=== PATIENT | male | born 1995 | race Hispanic/Latino ===

== ENCOUNTER 2017-10-03 17:13 | Emergency (ER) | payer BC | END 2017-10-03 18:15 | disposition home or self-care (01) | LOC: ERS 17:13 | DX: S83.411A Sprain of medial collateral ligament of right knee, initial encounter (principal); J45.909 Unspecified asthma, uncomplicated; X50.1XXA Overexertion from prolonged static or awkward postures, initial encounter; Y93.02 Activity, running | CPT/HCPCS: 99283 ==

== ENCOUNTER 2019-05-02 10:33 | Outpatient (CLI) | payer BC ==
--- NOTE | 2019-05-02 14:37 | MRI ---
RIGHT KNEE MRI WITHOUT IV CONTRAST: Date: 05/02/19 HISTORY: Status post medial meniscal repair right knee. FINDINGS: Status post ACL repair with some heterogeneous thickening and increased signal within the replaced AC L, evidence for some mucoid degeneration without evidence for a complete full thickness tear. The lat eral meniscus appears intact. There appears to be an extensive complex tear of the medial meniscus wi th displaced meniscal flap at the posterior root, as well as the anterior horn/anterior body junction region. There is some mild associated cartilage loss. Minimal nonspecific marrow signal in the media l tibial plateau, as well as the intercondylar eminence region. Posterior cruciate ligament is intact . Collateral ligament complexes appear intact. 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 IMPRESSION: 1. Extensive abnormal signal changes throughout the medial meniscus, evidence for a complex flap tea r with displaced flaps at the level of the posterior root and also at the anterior body/anterior horn junction. 2. Intact replaced ACL tendon with some thickening and heterogeneous increased signal, evidence for heterogeneous mucoid degeneration. 3. Evidence for joint effusion. 4. Somewhat flattened superior trochlear groove, evidence for patellar trochlear dysplasia. POS: [facility]
== END 2019-05-02 10:34 | disposition home or self-care (01) ==
LOC: TBSIIMAG 10:33 → BICMRI 10:34
PROVIDERS: ATTEND Orthopaedic Surgery
DX: Z47.89 Encounter for other orthopedic aftercare (principal); M25.461 Effusion, right knee; S83.231D Complex tear of medial meniscus, current injury, right knee, subsequent encounter; M22.8X1 Other disorders of patella, right knee; R93.6 Abnormal findings on diagnostic imaging of limbs; Z98.890 Other specified postprocedural states

== ENCOUNTER 2020-09-21 17:11 | Emergency (ER) | payer OTHER, BC ==
[2020-09-21] MEDS ORDERED: Acetaminophen 500 MG TAB ONE (18:27)
[2020-09-21] MEDS ORDERED: Ibuprofen 800 MG TAB ONE (18:27)
== END 2020-09-21 18:34 | disposition home or self-care (01) ==
LOC: ERS 17:11
DX: M54.2 Cervicalgia (principal); J45.909 Unspecified asthma, uncomplicated; V89.2XXA Person injured in unspecified motor-vehicle accident, traffic, initial encounter
CPT/HCPCS: 99284